=== PATIENT | female | born 1970 | race Caucasian/White ===

== ENCOUNTER → 2017-05-02 | Outpatient (CLI) | payer OTHER ==
[2016-10-29 15:20] VITALS: BP 118/90
[~2017-05-02] MED LIST: CIPR500T94 PO
--- NOTE | 2017-05-02 15:35 | RAD ---
DATE: 05/02/2017 EXAM: DIGITAL SCREEN BILAT W/CAD HISTORY: Screening study. COMPARISON: 07/29/2015 This study was interpreted with the benefit of Computerized Aided Detection (CAD). FINDINGS: Digital MLO and CC mammograms of both breasts were obtained. Comparison study is dated 07/29/2015. The breast parenchyma is heterogeneously dense which can obscure a lesion on mammography (breast density code C). No spiculated mass is seen. No malignant appearing calcification or area of architectural distortion is noted. Since the previous examination there has been no significant interval change. IMPRESSION: BI-RADS Category 1, negative. There is no mammographic evidence of malignancy. Routine yearly screening mammography is recommended for follow-up. BI-RADS CATEGORY: 1 NEGATIVE RECOMMENDED FOLLOW-UP: 12M 12 MONTH FOLLOW-UP PQRS compliance statement: Patient information was entered into a reminder system with a target due date 05/02/2018 for the next mammogram. Mammography is a sensitive method for finding small breast cancers, but it does not detect them all and is not a substitute for careful clinical examination. A negative mammogram does not negate a clinically suspicious finding and should not result in delay in biopsying a clinically suspicious abnormality. "Our facility is accredited by the [employer]ammography Program."
== END | disposition home or self-care (01) ==
LOC: MAMMO 15:02
PROVIDERS: ATTEND Family Medicine
DX: Z12.31 Encounter for screening mammogram for malignant neoplasm of breast (principal)
CPT/HCPCS: G0202; 77067

== ENCOUNTER 2018-01-27 14:51 | Emergency (ER) | payer OTHER ==
[2018-01-27 15:00] VITALS: BP 148/82
--- NOTE | 2018-01-27 15:27 | ED.ADGEN ---
Past History Past Medical History: Other Past Surgical History: Hysterectomy Alcohol Use: Occasionally Drug Use: None Adult General Chief Complaint Chief Complaint Rash HPI HPI Patient is a 47-year-old female who presents with a maculopapular rash with confluent patches to extremities. Symptoms began several days ago after retrieving her dog in the brush. Itches. Has some serous drainage right calf. No fever chills, nausea vomiting or sweats. Patient is nondiabetic. No other acute symptoms or complaints.[] Review of Systems Review of Systems Review symptoms as per history of present illness. All other review symptoms are negative. All other systems were reviewed and found to be within normal limits, except as documented in this note. Allergies Allergies Allergies Coded Allergies Type Severity Reaction Last Updated Verified Penicillins Allergy Intermediate Hives 02/27/15 Yes doxycycline Allergy Intermediate emesis 02/27/15 Yes Physical Exam Physical Exam Constitutional: Well developed, well nourished, no acute distress, non-toxic appearance. [] HENT: Normocephalic, atraumatic, bilateral external ears normal, oropharynx moist, no oral exudates, nose normal. [] Eyes: PERRL[] Skin: Erythematous maculopapular rash with confluent over extremities. [] a. [] Neurologic: Alert and oriented X 3, normal motor function, normal sensory function, no focal deficits noted. [] Psychologic: Affect normal, judgement normal, mood normal. [] Current Patient Data Vital Signs Vital Signs Date Time Temp Pulse Resp B/P (MAP) Pulse Ox O2 Delivery O2 Flow Rate FiO2 01/27/18 15:00 98.5 103 16 100 Room Air EKG EKG [] Radiology/Procedures Radiology/Procedures [] Course & Med Decision Making Course & Med Decision Making Pertinent Labs and Imaging studies reviewed. (See chart for details) [Exam consistent with plant dermatitis. Will treat supportively with PCP follow- up. Return precautions reviewed.] Final Impression Final Impression [1. Plant dermatitis] Problems: Dragon Disclaimer Dragon Disclaimer This electronic medical record was generated, in whole or in part, using a voice recognition dictation system. CARLOS MAO DO January 27, 2018 15:27
== END 2018-01-27 15:28 | disposition home or self-care (01) ==
LOC: ER 14:51
DX: L25.5 Unspecified contact dermatitis due to plants, except food (principal); Z88.0 Allergy status to penicillin; Z88.1 Allergy status to other antibiotic agents
CPT/HCPCS: 99283

== ENCOUNTER 2018-12-20 19:21 | Emergency (ER) | payer OTHER ==
[~2018-12-20] VITALS: Ht 160 cm; Wt 52.8 kg
--- NOTE | 2018-12-20 19:29 | ED.ADGEN ---
Past History Past Medical History: Other Past Medical History Neurofibromatosis Past Surgical History: Hysterectomy Past Surgical History Re-implant Lt ear 2017, and repeat 2017. [facility] , . Carotid in endarterectomy aneurysm repair 2005 [facility] Alcohol Use: Occasionally Drug Use: None Adult General Chief Complaint Chief Complaint ".. I got a bump on the Lt. side of my neck..." .. " It started at work I think.. but got larger after work... and after my shower....it seemed to get better on the way here...... but in is on the same side I had ear surgery... 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 Approximate size of masses 8 x 8 cm. Left carotid pulse felt below mass, but not felt in the mass itself. This is an area of endarterectomy carotid aneurysm repair scar as well as reimplantation scars for her left ear. Patient denies any recent trauma. Denies any travel or specific ill contacts. No history immunosuppression. She normally follows with Dr. Interiano. Patient has a history of neurofibromatosis. Pt. had hx of Lt ear and facial tissue reposition at [facility] - in , and again in 2017. Carotid endarterectomy and aneurysmal repair was in 2004 at [facility]. Patient denies any neuro changes. Patient denies any significant discomfort except in the area of the new mass on the left angle of mandible and head. Discomfort is described as minimal. Review of Systems Review of Systems Constitutional: Denies fever or chills [] Eyes: Denies change in visual acuity, redness, or eye pain [] HENT: Denies nasal congestion or sore throat []complaints of left neck mass Respiratory: Denies cough or shortness of breath [] Cardiovascular: No additional information not addressed in HPI [] GI: Denies abdominal pain, nausea, vomiting, bloody stools or diarrhea [] : Denies dysuria or hematuria [] Musculoskeletal: Denies back pain or joint pain [] Integument: Denies rash or skin lesions [] Neurologic: Denies headache, focal weakness or sensory changes [] Endocrine: Denies polyuria or polydipsia [] All other systems were reviewed and found to be within normal limits, except as documented in this note. Family History Family History Noncontributory Current Medications Current Medications Current Medications Medications (Trade) Dose Ordered Sig/Elliot Start Time Stop Time Status Last Admin Dose Admin Iohexol (Omnipaque 350 Mg/ml) 100 ml 1X ONCE 12/20/18 20:15 12/20/18 20:16 DC 12/20/18 20:31 100 ML Lactated Ringer's 1,000 ml @ 1,000 mls/hr Q1H 12/20/18 20:01 12/20/18 21:00 DC 12/20/18 20:01 1,000 MLS/HR Morphine Sulfate (Morphine 10mg Syringe) 10 mg 1X ONCE 12/20/18 21:00 12/20/18 21:01 DC Allergies Allergies Allergies Coded Allergies Type Severity Reaction Last Updated Verified Penicillins Allergy Intermediate Hives 02/27/15 Yes doxycycline Allergy Intermediate emesis 02/27/15 Yes Physical Exam Physical Exam Constitutional: Moderate distress, non-toxic appearance. [] HENT: Normocephalic, atraumatic, external ear canal on left is deformed and angulated, previous surgery scar repairs,, oropharynx moist, no oral exudates, nose normal. Mass at ankle of mandible on left that extends into the neck. Eyes: PERRLA, EOMI, conjunctiva normal, no discharge. [] Neck: Normal range of motion, mild tenderness 8 x 8 cm mass left side of neck, supple, no stridor. [] Has endarterectomy scar on left and left ear and mastoid scars. Cardiovascular:Heart rate regular rhythm, no murmur [] Lungs & Thorax: Bilateral breath sounds equal apex on auscultation [] Abdomen: Bowel sounds normal, soft, no tenderness, no masses, no pulsatile masses. [] Skin: Warm, dry, no erythema, no rash. [] Does have findings of skin nodules consistent with neurofibromatous. Back: No tenderness, no CVA tenderness. [] Extremities: No tenderness, no cyanosis, no clubbing, ROM intact, no edema. [] Neurologic: Alert and oriented X 3, normal motor function, normal sensory function, no focal deficits noted. []DTRs +2 patella and brachial. No drift. Sports Athletic Trainer equal. Ambulatory without problems. Psychologic: Affect anxious, judgement normal, mood normal. [] Current Patient Data Vital Signs Vital Signs Date Time Temp Pulse Resp B/P (MAP) Pulse Ox O2 Delivery O2 Flow Rate FiO2 12/20/18 22:11 82 18 139/83 (101) 97 Room Air 12/20/18 19:36 98.3 Lab Results Laboratory Tests Test 12/20/18 20:22 12/20/18 20:33 White Blood Count 8.8 x10^3/uL (4.0-11.0) Red Blood Count 4.64 x10^6/uL (3.50-5.40) Hemoglobin 13.8 g/dL (12.0-15.5) Hematocrit 40.7 % (36.0-47.0) Mean Corpuscular Volume 88 fL (79-100) Mean Corpuscular Hemoglobin 30 pg (25-35) Mean Corpuscular Hemoglobin Concent 34 g/dL (31-37) Red Cell Distribution Width 13.8 % (11.5-14.5) Platelet Count 192 x10^3/uL (140-400) Neutrophils (%) (Auto) 67 % (31-73) Lymphocytes (%) (Auto) 20 % (24-48) L Monocytes (%) (Auto) 9 % (0-9) Eosinophils (%) (Auto) 3 % (0-3) Basophils (%) (Auto) 1 % (0-3) Neutrophils # (Auto) 5.9 x10^3uL (1.8-7.7) Lymphocytes # (Auto) 1.7 x10^3/uL (1.0-4.8) Monocytes # (Auto) 0.8 x10^3/uL (0.0-1.1) Eosinophils # (Auto) 0.2 x10^3/uL (0.0-0.7) Basophils # (Auto) 0.1 x10^3/uL (0.0-0.2) Erythrocyte Sedimentation Rate 2 (0-25) Prothrombin Time 9.9 SEC (9.4-11.4) Prothrombin Time INR 1.0 (0.9-1.1) PTT 25 SEC (23-33) D-Dimer (Faith) 0.28 mg/L (0.00-0.50) Maternal Serum HCG Beta Subunit < 1 mIU/mL (0-6) Sodium Level 132 mmol/L (136-145) L Potassium Level 4.0 mmol/L (3.5-5.1) Chloride Level 99 mmol/L (98-107) Carbon Dioxide Level 27 mmol/L (21-32) Anion Gap 6 (6-14) Blood Urea Nitrogen 11 mg/dL (7-20) Creatinine 0.6 mg/dL (0.6-1.0) Estimated GFR (Cockcroft-Gault) 106.3 Glucose Level 89 mg/dL (70-99) Calcium Level 9.2 mg/dL (8.5-10.1) Total Bilirubin 0.5 mg/dL (0.2-1.0) Direct Bilirubin 0.1 mg/dL (0.0-0.2) Aspartate Amino Transferase (AST) 16 U/L (15-37) Alanine Aminotransferase (ALT) 22 U/L (14-59) Alkaline Phosphatase 55 U/L (46-116) Creatine Kinase 55 U/L (26-192) Troponin I Quantitative < 0.017 ng/mL (0-0.055) AS-Kea-F-Type Natriuretic Peptide 32 pg/mL (0-124) Total Protein 6.6 g/dL (6.4-8.2) Albumin 3.5 g/dL (3.4-5.0) Group A Streptococcus Rapid Negative (NEGATIVE) EKG EKG My interpretation EKG shows a sinus rhythm at 77 bpm. There is some nonspecific anterior lateral changes. But no findings acute STEMI of contralateral changes.[ ] Radiology/Procedures Radiology/Procedures I interpretation of chest x-ray shows no acute cardiopulmonary findings. CT of head and neck show region of ectasia/aneurysmal dilatation of Lt. Extracraial ICA and Intracrania IC. Has large soft tissue mas on Lt head and neck area. Possible AVM. Old post surgery changes of soft tissue. See formal report when available. [] Course & Med Decision Making Course & Med Decision Making Pertinent Labs and Imaging studies reviewed. (See chart for details) Discussed presentation, testing and treatment plan with Dr. Syed and Dr. Deleon wildlife policy professional for vascular surgery. Pt. to be transfer to [facility] for MRI of Head and Neck and vascular follow up. [] Final Impression Final Impression 1. Mass left sided neck- AVM ?? 2. History of neurofibromatosis 3. History of left carotid aneurysm endarterectomy repair 2004 4. Hx. of left ear and facial soft tissue reimplantation and repositioning at [facility] in May 08 and August [id number] Dragon Disclaimer Dragon Disclaimer This electronic medical record was generated, in whole or in part, using a voice recognition dictation system. Dragon Disclaimer This chart was dictated in whole or in part using Voice Recognition software in a busy, high-work load, and often noisy Emergency Department environment. It may contain unintended and wholly unrecognized errors or omissions. Discharge Summary Visit Information Final Diagnosis Problems Medical Problems: (1) Mass in neck Status: Acute Brief Hospital Course Allergies Allergies Coded Allergies Type Severity Reaction Last Updated Verified Penicillins Allergy Intermediate Hives 02/27/15 Yes doxycycline Allergy Intermediate emesis 02/27/15 Yes Vital Signs Vital Signs Date Time Temp Pulse Resp B/P (MAP) Pulse Ox O2 Delivery O2 Flow Rate FiO2 12/20/18 22:11 82 18 139/83 (101) 97 Room Air 12/20/18 19:36 98.3 Lab Results Laboratory Tests Test 12/20/18 20:22 12/20/18 20:33 White Blood Count 8.8 x10^3/uL (4.0-11.0) Red Blood Count 4.64 x10^6/uL (3.50-5.40) Hemoglobin 13.8 g/dL (12.0-15.5) Hematocrit 40.7 % (36.0-47.0) Mean Corpuscular Volume 88 fL (79-100) Mean Corpuscular Hemoglobin 30 pg (25-35) Mean Corpuscular Hemoglobin Concent 34 g/dL (31-37) Red Cell Distribution Width 13.8 % (11.5-14.5) Platelet Count 192 x10^3/uL (140-400) Neutrophils (%) (Auto) 67 % (31-73) Lymphocytes (%) (Auto) 20 % (24-48) Monocytes (%) (Auto) 9 % (0-9) Eosinophils (%) (Auto) 3 % (0-3) Basophils (%) (Auto) 1 % (0-3) Neutrophils # (Auto) 5.9 x10^3uL (1.8-7.7) Lymphocytes # (Auto) 1.7 x10^3/uL (1.0-4.8) Monocytes # (Auto) 0.8 x10^3/uL (0.0-1.1) Eosinophils # (Auto) 0.2 x10^3/uL (0.0-0.7) Basophils # (Auto) 0.1 x10^3/uL (0.0-0.2) Erythrocyte Sedimentation Rate 2 (0-25) Prothrombin Time 9.9 SEC (9.4-11.4) Prothromb Time International Ratio 1.0 (0.9-1.1) Activated Partial Thromboplast Time 25 SEC (23-33) D-Dimer (Faith) 0.28 mg/L (0.00-0.50) Maternal Serum HCG Beta Subunit < 1 mIU/mL (0-6) Sodium Level 132 mmol/L (136-145) Potassium Level 4.0 mmol/L (3.5-5.1) Chloride Level 99 mmol/L (98-107) Carbon Dioxide Level 27 mmol/L (21-32) Anion Gap 6 (6-14) Blood Urea Nitrogen 11 mg/dL (7-20) Creatinine 0.6 mg/dL (0.6-1.0) Estimated GFR (Cockcroft-Gault) 106.3 Glucose Level 89 mg/dL (70-99) Calcium Level 9.2 mg/dL (8.5-10.1) Total Bilirubin 0.5 mg/dL (0.2-1.0) Direct Bilirubin 0.1 mg/dL (0.0-0.2) Aspartate Amino Transf (AST/SGOT) 16 U/L (15-37) Alanine Aminotransferase (ALT/SGPT) 22 U/L (14-59) Alkaline Phosphatase 55 U/L (46-116) Creatine Kinase 55 U/L (26-192) Troponin I Quantitative < 0.017 ng/mL (0-0.055) TH-Dpb-R-Type Natriuretic Peptide 32 pg/mL (0-124) Total Protein 6.6 g/dL (6.4-8.2) Albumin 3.5 g/dL (3.4-5.0) Group A Streptococcus Rapid Negative (NEGATIVE) Brief Hospital Course Ms. Fraser is a 48 old female who presented with hx of neurofibromatous and new ? AVM Lt. side of face and head in area of prior ICA aneurysm. Transferred to [facility] for further evaluation-by vascular. Admitted to Dr. Syed. Discharge Information Condition at Discharge: Stable Disposition/Orders: D/C to Another Facility Dischare Medications Current Medications Lactated Ringer's 1,000 ml @ 1,000 mls/hr Q1H IV Last administered on at 20:01; Admin Dose 1,000 MLS/HR; Start 12/20/18 at 20:01; Stop 12/20/18 at 21:00; Status DC Iohexol (Omnipaque 350 Mg/ml) 100 ml 1X ONCE IV Last administered on at 20:31; Admin Dose 100 ML; Start 12/20/18 at 20:15; Stop 12/20/18 at 20:16; Status DC Morphine Sulfate (Morphine 10mg Syringe) 10 mg 1X ONCE SQ ; Start 12/20/18 at 21:00; Stop 12/20/18 at 21:01; Status DC Active Scripts Active Cipro (Ciprofloxacin Hcl) 500 Mg Tablet 1 Tab PO BID ANGEL LUIS HAYWARD MD Dec 20, 2018 19:29
[2018-12-20] MEDS ORDERED: IV RINGERS SOLUTION,LACTATED 1,000 ML IV SCH (20:01)
[2018-12-20] MEDS ORDERED: IOHEXOL 350 MG/ML 100 ML VIAL. IV ONE (20:15)
[2018-12-20 20:37] LABS: BASO # 0.1 x10^3/uL (0.0-0.2); BASO % 1 % (0-3); EOS # 0.2 x10^3/uL (0.0-0.7); EOS % 3 % (0-3); HEMATOCRIT 40.7 % (36.0-47.0); HEMOGLOBIN 13.8 g/dL (12.0-15.5); LYMPH # 1.7 x10^3/uL (1.0-4.8); LYMPH % 20 % (24-48); MEAN CORPUSCULAR HEMOGLOBIN 30 pg (25-35); MEAN CORPUSCULAR HGB CONC 34 g/dL (31-37); MEAN CORPUSCULAR VOLUME 88 fL (79-100); MONO # 0.8 x10^3/uL (0.0-1.1); MONO % 9 % (0-9); NEUT # 5.9 x10^3uL (1.8-7.7); NEUT % 67 % (31-73); PLATELET COUNT 192 x10^3/uL (140-400); RED BLOOD COUNT 4.64 x10^6/uL (3.50-5.40); RED CELL DISTRIBUTION WIDTH 13.8 % (11.5-14.5); WHITE BLOOD COUNT 8.8 x10^3/uL (4.0-11.0)
[2018-12-20] MEDS ORDERED: MORPHINE SULFATE 10 MG/ML SYRINGE. SQ ONE (21:00)
[2018-12-20 22:11] VITALS: BP 139/83
[2018-12-20 22:15] LABS: ALBUMIN 3.5 g/dL (3.4-5.0); CALCIUM 9.2 mg/dL (8.5-10.1); CREATININE 0.6 mg/dL (0.6-1.0); DIRECT BILIRUBIN 0.1 mg/dL (0.0-0.2); GFR 106.3; TOTAL BILIRUBIN 0.5 mg/dL (0.2-1.0); TOTAL PROTEIN 6.6 g/dL (6.4-8.2)
--- NOTE | 2018-12-20 22:17 | RAD ---
EXAM: CT angiogram head and neck with IV contrast CLINICAL HISTORY: New left mass on neck today. Hx. of disection Lt Carotid- 2004 post repair COMPARISON: CT head 10/29/2016. TECHNIQUE: CT angiogram of the head and neck was performed following the administration of IV contrast. Coronal and sagittal 3-D MIP images were generated. Stenosis if present was measured using Nascet criteria. PQRS compliance statement - One or more of the following individualized dose reduction techniques were utilized for this study: 1. Automated exposure control 2. Adjustment of the mA and/or kV according to patient size 3. Use of iterative reconstruction technique FINDINGS: The origins of the great vessels are grossly normal. The common carotid artery is widely patent throughout. The bilateral extra carotid arteries are widely patent. The extracranial right internal carotid artery is also patent, normal in caliber throughout. The left internal carotid artery is patent although aneurysmal from the C2-3 level to the C5 level. The bilateral intracranial internal carotid arteries are widely patent although the left cavernous and clinoid segments of the left internal cardiac artery are mildly aneurysmal measuring up to 5 mm, proximally measuring approximately 2.5 mm. The anterior cerebral arteries are well visualized and without evidence of stenosis or occlusion. The middle cerebral arteries are well visualized and without evidence of stenosis or occlusion. The posterior cerebral arteries are well visualized and without evidence of stenosis or occlusion. The vertebrobasilar system is normal with no evidence of stenosis or occlusion. Postsurgical changes are seen within the left temporal region with associated deformity of the left mastoid air cells and left auditory canal. Immediately overlying this postsurgical change extending inferiorly is a region of diffuse soft tissue thickening measuring approximately 7.2 x 3.9 x 12.5 cm (AP by transverse by craniocaudal). Associated internal vascularity is seen, particularly at the caudal margin, vascular malformation is not excluded. Alternatively other soft tissue mass or postsurgical change. Similar appearance. Of note, compared to prior CT head 10/29/2016 this is more prominent stable in size. The prominent previously seen soft tissue enhancement in the subcutaneous left frontoparietal region is not definitively seen on today's examination., IMPRESSION: 1. 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 2. Large soft tissue prominence overlying the left head and neck with some prominent internal vessels, possibly vascular malformation although postsurgical change or other soft tissue mass may have similar appearance. Recommend comparison to additional prior imaging if available to assess stability. Electronically signed by: Michael Kate MD (12/20/2018 10:14 PM) [facility]
--- NOTE | 2018-12-21 00:34 | RAD ---
EXAM: PA and Lateral Views of the Chest DATE: 12/20/2018 8:01 PM INDICATION: Left sided neck mass with hx of left carotid dissection w/repair COMPARISON: No Prior FINDINGS: The heart is not enlarged. Mediastinal and hilar contours are normal. No focal parenchymal airspace opacity. No pleural effusion or pneumothorax. Mild pectus deformity of the chest wall. Mild soft tissue prominence at the left neck base. IMPRESSION: 1. No radiographic evidence for acute cardiopulmonary process. Electronically signed by: Michael Kate MD (12/21/2018 12:31 AM) [facility]
--- NOTE | 2018-12-21 19:10 | EKG ---
[address] [address] Test Date: 2018-12-20 Test Time: 20:01:12 Pat Name: HETAL CHINO Department: Room: Gender: F Regulatory Internship: FILIPPO : [id number] Requested By: ANGEL LUIS HAYWARD Order Number: [id number] Reading MD: Singh Grove MD Measurements Intervals [place] Rate: 77 P: 44 MN: 136 QRS: 73 QRSD: 88 T: 51 QT: 374 QTc: 425 Interpretive Statements SINUS RHYTHM Electronically Signed On 12-24-2018 14:11:46 CDT by Singh Grove MD
== END 2018-12-21 01:00 | disposition short-term general hospital (02) ==
LOC: ER 19:21
DX: R22.1 Localized swelling, mass and lump, neck (principal); Q85.00 Neurofibromatosis, unspecified; Z98.890 Other specified postprocedural states; Z88.0 Allergy status to penicillin; Z88.1 Allergy status to other antibiotic agents
CPT/HCPCS: 36415; 70496; 70498; 71046; 80048; 80076; 82550; 83880; 84443; 84484; 84702; 85025; 85379; 85610; 85651; 85730; 87070; 87880; 93005; 99285; J7120; Q9967

== ENCOUNTER → 2019-08-01 | Outpatient (CLI) | payer OTHER ==
--- NOTE | 2019-08-02 10:53 | RAD ---
DATE: August 01, 2019 EXAM: DIGITAL SCREEN BILAT W/CAD HISTORY: Screening study. COMPARISON: 2014 and 2016 This study was interpreted with the benefit of Computerized Aided Detection (CAD). FINDINGS: Breast Density: DENSE The breast parenchyma is dense, which could reduce the sensitivity of mammography. Breast parenchyma level density D.. There are no dominant suspicious masses, suspicious microcalcifications or evidence of architectural distortion. IMPRESSION: No mammographic indicators for malignancy. BI-RADS CATEGORY: 1 NEGATIVE RECOMMENDED FOLLOW-UP: 12M 12 MONTH FOLLOW-UP PQRS compliance statement: Patient information was entered into a reminder system with a target due date August 02, 2020 for the next mammogram. Mammography is a sensitive method for finding small breast cancers, but it does not detect them all and is not a substitute for careful clinical examination. A negative mammogram does not negate a clinically suspicious finding and should not result in delay in biopsying a clinically suspicious abnormality. "Our facility is accredited by the [employer] Mammography Program." The patient's breast density may affect the ability of mammography to detect breast cancer. There are 4 categories of breast density, A, B, C and D. Breast density A means that most of the breast tissue is replaced with adipose tissue and therefore is not dense. Breast density B means that the breast tissue is mildly dense and scattered. Breast density C means that the breast tissue is heterogeneously dense. Breast density D means that the breast tissue is very dense. Breast densities especially C and D may decrease the sensitivity of mammography to detect breast cancer. Therefore, the patient may benefit from 3-D breast mammography (3D breast tomography) as a part of their screening mammogram. Insurance may or may not pay for this additional imaging. The patient's breast density based on today's mammogram is category D.
== END | disposition home or self-care (01) ==
LOC: MAMMO 15:00
PROVIDERS: ATTEND Obstetrics & Gynecology
DX: Z12.31 Encounter for screening mammogram for malignant neoplasm of breast (principal)
CPT/HCPCS: 77067

== ENCOUNTER → 2020-08-18 | Outpatient (CLI) | payer OTHER ==
--- NOTE | 2020-08-19 15:05 | RAD ---
DATE: 08/18/2020 2:33 PM EXAM: MAMMO LIDA SCREENING BILATERAL HISTORY: Screening COMPARISON: 08/01/2019 Bilateral CC and MLO views of the breasts were performed. Bilateral breast tomosynthesis was performed in CC and MLO projections. This study was interpreted with the benefit of Computerized Aided Detection (CAD). FINDINGS: Breast Density: DENSE The breast Parenchyma is dense, which could reduce the sensitivity of mammography. Breast parenchyma level density D. No suspicious masses, microcalcifications or architectural distortion is present to suggest malignancy in either breast. The visualized axillae are unremarkable. IMPRESSION: No mammographic evidence of malignancy. BI-RADS CATEGORY: 1 NEGATIVE RECOMMENDED FOLLOW-UP: 12M 12 MONTH FOLLOW-UP Annual screening mammography is recommended, unless clinically indicated sooner based on symptoms or change in physical exam. PQRS compliance statement: Patient information was entered into a reminder system with a target due date for the next mammogram. Mammography is a sensitive method for finding small breast cancers, but it does not detect them all and is not a substitute for careful clinical examination. A negative mammogram does not negate a clinically suspicious finding and should not result in delay in biopsying a clinically suspicious abnormality. "Our facility is accredited by the [employer] Mammography Program."
== END ==
LOC: MAMMO 14:20
PROVIDERS: ATTEND Family Medicine
DX: Z12.31 Encounter for screening mammogram for malignant neoplasm of breast (principal)
CPT/HCPCS: 77063; 77067

== ENCOUNTER → 2021-10-04 | Outpatient (CLI) | payer OTHER ==
--- NOTE | 2021-10-05 08:40 | RAD ---
* DIGITAL SCREENING 2-D AND 3-D MAMMOGRAM INDICATION: Routine screening. COMPARISON: Prior studies including one of 08/18/2020. Interpretation was made using CAD. FINDINGS: Breast Density: D RIGHT BREAST: No suspicious masses, calcifications or areas of architectural distortion are seen. LEFT BREAST: No suspicious masses, calcifications or areas of architectural distortion are seen. IMPRESSION: 1. No imaging evidence of malignancy. ASSESSMENT: BI-RADS 1. Negative. RECOMMENDATION: Routine annual screening mammogram. The facility will notify the patient of the results via mail. Patient information will be entered int o the mammography reminder system with a target recall date for the next mammogram. A reminder letter will be generated by the facility. Electronically signed by: Satish Lopez Jr., MD (10/05/2021 8:38 AM) [id number]
== END ==
LOC: MAMMO 14:42
PROVIDERS: ATTEND Obstetrics & Gynecology
DX: Z12.31 Encounter for screening mammogram for malignant neoplasm of breast (principal)
CPT/HCPCS: 77063; 77067